=== PATIENT | female | born 1965 | race Caucasian/White ===

== ENCOUNTER → 2021-07-21 11:46 | Outpatient (BNVA) | payer OTHER, SELFPAY | PROVIDERS: Family Provider Internal Medicine; Visit Provider Nurse Practitioner Family | DX: E03.9 Hypothyroidism, unspecified (principal); I10 Essential (primary) hypertension; E11.9 Type 2 diabetes mellitus without complications; E78.5 Hyperlipidemia, unspecified | CPT/HCPCS: 80053; 80061; 83036; 84443 ==

== ENCOUNTER → 2022-01-11 11:49 | Outpatient (BNVA) | payer OTHER, SELFPAY | PROVIDERS: Family Provider Internal Medicine; PCP Nurse Practitioner Family; Visit Provider Nurse Practitioner Family | DX: E78.5 Hyperlipidemia, unspecified (principal); I10 Essential (primary) hypertension; E03.9 Hypothyroidism, unspecified; E11.9 Type 2 diabetes mellitus without complications | CPT/HCPCS: 80053; 80061; 83036; 84443 ==

== ENCOUNTER → 2022-05-25 14:56 | Outpatient (BNVA) | payer OTHER, SELFPAY | PROVIDERS: Family Provider Internal Medicine; PCP Nurse Practitioner Family; Visit Provider Nurse Practitioner Family | DX: E11.9 Type 2 diabetes mellitus without complications (principal); I10 Essential (primary) hypertension; E78.5 Hyperlipidemia, unspecified; E03.9 Hypothyroidism, unspecified | CPT/HCPCS: 80053; 80061; 83036; 84443 ==

== ENCOUNTER → 2022-08-23 15:58 | Outpatient (BNVA) | payer OTHER, SELFPAY | PROVIDERS: Family Provider Internal Medicine; PCP Nurse Practitioner Family; Visit Provider Nurse Practitioner Family | DX: E78.5 Hyperlipidemia, unspecified (principal); I10 Essential (primary) hypertension; E11.9 Type 2 diabetes mellitus without complications; F41.9 Anxiety disorder, unspecified | CPT/HCPCS: 80053; 80061; 83036 ==

== ENCOUNTER → 2022-11-22 10:36 | Outpatient (BNVA) | payer OTHER, SELFPAY | PROVIDERS: Family Provider Internal Medicine; PCP Nurse Practitioner Family; Visit Provider Nurse Practitioner Family | DX: E11.9 Type 2 diabetes mellitus without complications (principal); E78.5 Hyperlipidemia, unspecified; E03.9 Hypothyroidism, unspecified; R53.83 Other fatigue; I10 Essential (primary) hypertension | CPT/HCPCS: 80053; 80061; 83036; 84443; 85025 ==

== ENCOUNTER → 2022-12-20 10:50 | Outpatient (BNVA) | payer OTHER, SELFPAY | PROVIDERS: Family Provider Internal Medicine; PCP Nurse Practitioner Family; Visit Provider Nurse Practitioner Family | DX: N28.9 Disorder of kidney and ureter, unspecified (principal) | CPT/HCPCS: 80048 ==

== ENCOUNTER → 2023-02-14 11:50 | Outpatient (BNVA) | payer OTHER, SELFPAY | PROVIDERS: Family Provider Internal Medicine; PCP Nurse Practitioner Family; Visit Provider Nurse Practitioner Family | DX: E11.9 Type 2 diabetes mellitus without complications (principal); I10 Essential (primary) hypertension; F41.9 Anxiety disorder, unspecified; E03.9 Hypothyroidism, unspecified | CPT/HCPCS: 80053; 83036; 84443 ==

== ENCOUNTER → 2023-07-18 11:14 | Outpatient (BNVA) | payer OTHER, SELFPAY | PROVIDERS: Family Provider Internal Medicine; PCP Nurse Practitioner Family; Visit Provider Nurse Practitioner Family | DX: E03.9 Hypothyroidism, unspecified (principal); E11.9 Type 2 diabetes mellitus without complications; I10 Essential (primary) hypertension; E78.5 Hyperlipidemia, unspecified; F41.9 Anxiety disorder, unspecified; E11.65 Type 2 diabetes mellitus with hyperglycemia; Z79.4 Long term (current) use of insulin; E78.2 Mixed hyperlipidemia | CPT/HCPCS: 84443 ==

== ENCOUNTER → 2023-09-13 13:45 | Outpatient (BNVA) | payer OTHER, SELFPAY | PROVIDERS: Family Provider Internal Medicine; PCP Nurse Practitioner Family; Visit Provider Nurse Practitioner Family | DX: E11.65 Type 2 diabetes mellitus with hyperglycemia (principal); Z79.4 Long term (current) use of insulin | CPT/HCPCS: 80053; 80061; 83036; 84443; 85025 ==

== ENCOUNTER 2024-01-26 12:35 | Outpatient (CLI) | payer OTHER, SELFPAY ==
--- NOTE | 2024-01-26 13:00 | XR_ITS ---
WS: [id number] DEXA (DUAL ENERGY X-RAY ABSORPTIOMETRY) Bone mineral density was performed using a Gradwell machine. HISTORY: M81.0 - Age-related osteoporosis without current patholog... COMPARISON: None available. Lumbar spine BMD (L1-L4): 1.437 g/cm2 T score: 2.1 Z score: 2.3 Total hip BMD: Left: 0.942 g/cm2. T score: -0.5 Z score: -0.3 Right: 0.916 g/cm2. T score: -0.7 Z score: -0.6 10 year probability of a major osteoporotic fracture is 6.4%. XR/XR DEXA axial skeleton* 98479 IMPRESSION: NORMAL BONE MINERAL DENSITY based upon the WHO classification for females.
--- NOTE | 2024-01-26 13:30 | MM_ITS ---
WS: [id number] BILATERAL SCREENING DIGITAL TOMOSYNTHESIS MAMMOGRAM WITH CAD HISTORY: Z12.39 - Encounter for other screening for malignant neop... COMPARISON: 05/23/2017 Bilateral CC and MLO views with tomosynthesis and synthetic mammography submitted. Computer aided det ection analyzed. Breast composition: The breasts are almost entirely fatty. No suspicious masses, microcalcifications or architectural distortion. Numerous benign scattered calcifications in each breast. MM/MM scr tomosynthesis [id number] IMPRESSION: BI-RADS: 2 - Benign. FOLLOW UP: 1 Year Follow-up
== END 2024-01-26 12:36 | disposition home or self-care (01) ==
LOC: RAD 12:35
PROVIDERS: Family Provider Internal Medicine; PCP Nurse Practitioner Family; Visit Provider Nurse Practitioner Family
DX: Z12.31 Encounter for screening mammogram for malignant neoplasm of breast (principal); R92.313 Mammographic fatty tissue density, bilateral breasts; R92.1 Mammographic calcification found on diagnostic imaging of breast; Z13.820 Encounter for screening for osteoporosis; M81.0 Age-related osteoporosis without current pathological fracture
CPT/HCPCS: 77063; 77067; 77080

== ENCOUNTER → 2024-03-12 14:17 | Outpatient (BNVA) | payer OTHER, SELFPAY | PROVIDERS: Family Provider Internal Medicine; PCP Nurse Practitioner Family; Visit Provider Nurse Practitioner Family | DX: I10 Essential (primary) hypertension (principal); E11.65 Type 2 diabetes mellitus with hyperglycemia; E78.2 Mixed hyperlipidemia; E03.9 Hypothyroidism, unspecified; Z79.4 Long term (current) use of insulin | CPT/HCPCS: 80053; 80061; 83036; 84443 ==

== ENCOUNTER 2024-05-23 05:59 | Day surgery (SDC) | payer OTHER, SELFPAY ==
[2024-05-23 06:18] VITALS: BP 132/73; PULSE 88; RESP 17; TEMP 36.2; O2SAT 96; BMI 36.0
[2024-05-23] MEDS: sodium chloride 0.9% 500 ML 15 ML IV (06:33)
[2024-05-23 06:36] LABS: Glucose Point of Care 175 mg/dL (70-110)
[2024-05-23] MEDS: ondansetron 2 mg/ML SDV 2 mL 4 MG IVP ×2 (06:41→07:52)
--- NOTE | 2024-05-23 07:00 | PM.HP ---
Providers/Chief Complaint Primary Care Provider: CRUZITO Madrigal Chief Complaint: Z12.11 History of Present Illness Jaky Hinds is a 58 year old female Review of Systems General: Reports: 10 or more systems reviewed and unremarkable except in HPI and below Medications/Allergies Home Medications Medication Instructions Recorded Confirmed Last Taken Type pantoprazole 40 mg tablet,delayed 40 mg PO BID 6 weeks #84 tabs 01/16/24 05/21/24 05/22/24 19:30 Rx release (Protonix) levothyroxine 112 mcg tablet 112 mcg PO DAILY 02/27/24 05/21/24 05/23/24 History insulin degludec 100 unit/mL (3 50 unit (0.5 mL) SUBCUT .QPM #15 mL 03/05/24 05/21/24 05/22/24 19:30 Rx mL) subcutaneous pen (Tresiba FlexTouch U-100 insulin) blood sugar diagnostic #50 ea 03/12/24 03/30/24 Unknown Rx blood-glucose meter #1 ea 03/12/24 03/30/24 Unknown Rx cyclobenzaprine 10 mg tablet 10 mg PO DAILY PRN Muscle Spasm 03/12/24 05/21/24 05/22/24 19:30 Rx #30 tabs semaglutide 2 mg/dose (8 mg/3 mL) 2 mg (0.75 mL) SUBCUT .WEEKLY #3 mL 03/12/24 05/21/24 05/22/24 19:30 Rx subcutaneous pen injector (Ozempic) alprazolam 0.25 mg tablet 0.25 mg PO BID PRN anxiety #60 tabs 04/26/24 05/21/24 05/23/24 Rx lisinopril 20 mg tablet See Rx Instructions .Route 05/14/24 05/21/24 05/22/24 19:30 Rx .COMPLEX #90 tabs levocetirizine 5 mg tablet 5 mg PO DAILY 05/21/24 05/21/24 05/22/24 19:30 History lovastatin 40 mg tablet 40 mg PO DAILY 05/21/24 05/21/24 05/22/24 19:30 History sertraline 100 mg tablet 100 mg PO DAILY 05/21/24 05/21/24 05/22/24 19:30 History Allergies Allergy/AdvReac Type Severity Reaction Status Date / Time Iodinated Contrast Media Allergy Unknown Verified 05/23/24 06:14 PFSH Acute PFSH: Medical History Anxiety Hypothyroid Hypertension Diabetes mellitus Family History Father CAD (coronary artery disease) Diabetes Hypertension Hyperlipidemia Grandmother Cancer Denies family history of Dementia Chronic kidney disease (CKD) Lung disease Stroke Social History Smoking and tobacco/nicotine status: never used tobacco/nicotine Alcohol intake: never Substance/Drug Use: never Adopted: No Lives independently: Yes Household members: none Vitals/I&O/Wt Last Vital Signs Temp 97.2 F L 05/23/24 06:18 Pulse 88 05/23/24 06:18 Resp 17 05/23/24 06:18 BP 132/73 05/23/24 06:18 Pulse Ox 96 05/23/24 06:18 O2 Del Method Room Air 05/23/24 06:18 Weight last 48 hrs Weight 210 lb A&P Assessment and plan (1) Screen for colon cancer: (2) GERD (gastroesophageal reflux disease): Qualifiers: Esophagitis presence: without esophagitis Qualified Code(s): K21.9 - Gastro-esophageal reflux disease without esophagitis Plan EGD and colonoscopy Attestations Medical Necessity Statement*: home Coding Level of Care Code Acute Code for Chg Fwd Diagnoses Screen for colon cancer Z12.11 Gastroesophageal reflux disease without esophagitis K21.9 Esophagitis presence: without esophagitis
[2024-05-23 07:28] VITALS: BP 89/65; PULSE 70; RESP 17; TEMP 36.1; O2SAT 96
[2024-05-23 07:34] VITALS: BP 90/60; PULSE 67; RESP 18; O2SAT 95
[2024-05-23 07:46] VITALS: BP 109/79; PULSE 67; RESP 20; O2SAT 97
[2024-05-23 07:59] VITALS: BP 125/79; PULSE 70; RESP 20; O2SAT 94
--- NOTE | 2024-05-23 08:45 | ANE.PACU2 ---
Inpatient post-anesthesia follow up: Airway intact: Yes Vital signs: Temperature 97.0 F Pulse Rate 70 Respiratory Rate 20 Blood Pressure 125/79 Pulse Oximetry 94 Oxygen Delivery Me thod Room Air Oxygen Flow Rate Fraction of Inspir ed Oxygen Hydration adequate: Yes Nausea and vomiting: No Pain level: 1 Mental status: Baseline
== END 2024-05-23 08:13 | disposition home or self-care (01) ==
PROVIDERS: PCP Nurse Practitioner Family; Visit Provider Surgery
PROC: 0DJ08ZZ Inspection of Upper Intestinal Tract, Via Natural or Artificial Opening Endoscopic (ICD-10-PCS; principal; 2024-05-23 07:00)
PROC: 0DJD8ZZ Inspection of Lower Intestinal Tract, Via Natural or Artificial Opening Endoscopic (ICD-10-PCS; CPT 45378; 2024-05-23 07:00)
DX: Z12.11 Encounter for screening for malignant neoplasm of colon (principal); K57.30 Diverticulosis of large intestine without perforation or abscess without bleeding; K64.1 Second degree hemorrhoids; F41.9 Anxiety disorder, unspecified; E03.9 Hypothyroidism, unspecified; I10 Essential (primary) hypertension; E11.9 Type 2 diabetes mellitus without complications
CPT/HCPCS: 36416; 43239; 45378; 82962; 88305; J2405; J2704; J7040

== ENCOUNTER → 2024-07-09 11:32 | Outpatient (BNVA) | payer OTHER, SELFPAY | PROVIDERS: PCP Nurse Practitioner Family; Visit Provider Nurse Practitioner Family | DX: E11.65 Type 2 diabetes mellitus with hyperglycemia (principal); Z79.4 Long term (current) use of insulin | CPT/HCPCS: 83036 ==

== ENCOUNTER → 2025-03-18 15:35 | Outpatient (BNVA) | payer OTHER, SELFPAY | PROVIDERS: PCP Nurse Practitioner Family; Visit Provider Nurse Practitioner Family | DX: I10 Essential (primary) hypertension (principal); E11.65 Type 2 diabetes mellitus with hyperglycemia; Z79.4 Long term (current) use of insulin; E78.2 Mixed hyperlipidemia; E03.9 Hypothyroidism, unspecified | CPT/HCPCS: 80053; 80061; 83036; 84443 ==

== ENCOUNTER → 2025-04-30 13:35 | Outpatient (BNVA) | payer OTHER, SELFPAY | PROVIDERS: PCP Nurse Practitioner Family; Referring Provider Nurse Practitioner Family; Visit Provider Internal Medicine | DX: R07.9 Chest pain, unspecified (principal); I44.0 Atrioventricular block, first degree; I45.19 Other right bundle-branch block; I44.4 Left anterior fascicular block; I51.7 Cardiomegaly; R94.31 Abnormal electrocardiogram [ECG] [EKG] | CPT/HCPCS: 93005 ==